=== PATIENT | male | born 1985 | race Caucasian/White ===

== ENCOUNTER 2018-06-29 22:24 | Emergency (ER) | payer BC ==
[~2018-06-29] VITALS: Ht 185.4 cm; Wt 113.4 kg
--- NOTE | 2018-06-29 22:24 | NUR ---
PT WAS WALKING DOG AND FELL "I WAS OVERHEATED AND PASSED OUT" WHILE ALSO GETTING AN ABRASION TO R CHEEK, LOOSE UPPER TOOTH, CUT ON INSIDE OF UPPER LIP. VSS NO ACUTE DISTRESS NOTED AT THIS TIME. ALERT AND ORIENTED ABLE TO MAKE NEEDS KNOWN. BREATHING PATTERN WNL WITH ADEQUATE CHEST RISE/FALL. WILL CONTINUE TO MONITOR FOR ANY CHANGES DURING THE SHIFT.
[2018-06-29] MEDS ORDERED: LIDOCAINE /MPF 1% VIAL 5 ML VIAL ONE (23:35)
[2018-06-29] MEDS ORDERED: BACITRACIN ZINC OINT PACKET 1 EA PACKET TP ONE (23:41)
[2018-06-29] MEDS ORDERED: ACETAMINOPHEN ES 500 MG TABLET ONE (23:42)
[2018-06-29 23:47] LABS: BASOPHILS % (AUTO) 0.3 % (0.0-2.0); EOSINOPHILS % (AUTO) 0.3 % (0.0-6.0); HEMATOCRIT 48 % (39-51); LYMPHOCYTES # (AUTO) 1.3 /CMM (0.8-4.8); LYMPHOCYTES % (AUTO) 9.7 % (20.0-44.0); MEAN CORPUSCULAR HEMOGLOBIN 29 PG (26.0-33.0); MEAN CORPUSCULAR HGB CONC 33 g/dl (31.0-36.0); MEAN CORPUSCULAR VOLUME 87 fL (80-96); MONOCYTES # (AUTO) 0.9 /CMM (0.1-1.30); MONOCYTES % (AUTO) 6.6 % (2.0-12.0); NEUTROPHILS # (AUTO) 11.2 /CMM (1.8-8.9); NEUTROPHILS % (AUTO) 83.1 % (43.0-81.0); PLATELET COUNT (AUTO) 274 /CMM (150-450); RDW COEFFICIENT OF VARIATION 12.8 (11.5-15.0); RED BLOOD CELL COUNT(AUTO) 5.51 MIL/uL (4.5-6.0); WHITE BLOOD COUNT (AUTO) 13.5 K/uL (4.3-11.0)
[2018-06-29 23:58] LABS: CALCIUM, SERUM 8.9 mg/dL (8.5-10.1); CREATININE 1.2 mg/dL (0.6-1.3); POTASSIUM 3.6 mmol/L (3.5-5.1)
[2018-06-30] MEDS ORDERED: BACITRACIN ZINC OINT PACKET 1 EA PACKET TP ONE
[2018-06-30] MEDS ORDERED: ACETAMINOPHEN ES 500 MG TABLET PO ONE
[2018-06-30] MEDS ORDERED: LIDOCAINE HCL/PF 1% 30 ML VIAL TP ONE
--- NOTE | 2018-06-30 00:55 | NUR ---
XRAY AT BEDSIDE
[2018-06-30 02:14] VITALS: BP 131/79
== END 2018-06-30 02:14 | disposition home or self-care (01) ==
LOC: ER 22:24
DX: S01.511A Laceration without foreign body of lip, initial encounter (principal); R55 Syncope and collapse; W18.30XA Fall on same level, unspecified, initial encounter; Y93.K1 Activity, walking an animal; Y92.89 Other specified places as the place of occurrence of the external cause; Y99.8 Other external cause status
CPT/HCPCS: 12011; 36415; 71045; 80048; 85025; 93005; 99285; A4606; A6402; J3490 ×2; Z7610